=== PATIENT | female | born 1930 | race Hispanic/Latino ===

== ENCOUNTER 2019-12-08 19:20 | Emergency (ER) | payer MEDICARE ==
[2019-12-08] MEDS ORDERED: TETANUS/DIPHTHERIA TOXOID [ADULT] 0.5 ML VIAL IM ONE (20:12)
[2019-12-08] MEDS ORDERED: ACETAMINOPHEN-CODEINE 300/30MG TAB ONE (20:12)
[2019-12-08] MEDS ORDERED: ONDANSETRON ODT 4 MG TAB ONE (20:12)
== END 2019-12-08 22:21 | disposition home or self-care (01) ==
LOC: EDH 19:20
DX: S39.012A Strain of muscle, fascia and tendon of lower back, initial encounter (principal); S00.81XA Abrasion of other part of head, initial encounter; S00.83XA Contusion of other part of head, initial encounter; E78.00 Pure hypercholesterolemia, unspecified; I10 Essential (primary) hypertension; W18.39XA Other fall on same level, initial encounter; Y93.01 Activity, walking, marching and hiking; Y92.89 Other specified places as the place of occurrence of the external cause; Y99.8 Other external cause status
CPT/HCPCS: 70450; 72125; 90471; 90714; 93005

== ENCOUNTER → 2020-07-06 | Outpatient (CLI) | payer MEDICARE ==
[~2020-07-06] VITALS: Ht 162.6 cm; Wt 59.0 kg
[~2020-07-06] MED LIST: ACET-2247 PO; ATEN25TA PO; BIMA12.5OS OU; CARB15DR OU; CEFAZOLIN SODIUM 1 GM VIAL IVP ONE; CEFAZOLIN SODIUM 1 GM VIAL ONE; FURO20TA4 PO; LACTATED RINGERS 1000ML 0 ML IV ONE; MEMA5TAB42 PO; RISP1TAB98 PO; SIMV-43 PO
[2020-07-06 11:00] VITALS: BP 128/61
[2020-07-06 11:23] LABS: BASOPHILS % (AUTO) 1.4 % (0.0-5.0); EOSINOPHILS % (AUTO) 5.1 % (0.0-8.0); HEMATOCRIT 35.5 % (36-48); LYMPHOCYTES % (AUTO) 30.7 % (21.0-51.0); MEAN CORPUSCULAR HEMOGLOBIN 30.9 pg (27.0-33.0); MEAN CORPUSCULAR HGB CONC 31.8 g/dL (32.0-36.0); NEUTROPHILS % (AUTO) 50.3 % (40.0-77.0); PLATELET COUNT (AUTO) 110 K/uL (130-400); RED BLOOD CELL COUNT(AUTO) 3.66 MIL/uL (4.00-5.50); RED CELL DISTRIBUTION WIDTH 13.9 % (11.0-15.5); WHITE BLOOD COUNT (AUTO) 4.3 K/uL (4.8-10.8)
[2020-07-06 11:35] LABS: CREATININE 0.7 mg/dL (0.5-1.5); POTASSIUM 3.9 mmol/L (3.5-5.1)
== END ==
LOC: EDSTATUS 10:00 → DAH 10:00
PROVIDERS: ATTEND Orthopaedic Surgery
DX: S52.532A Colles' fracture of left radius, initial encounter for closed fracture (principal); E78.00 Pure hypercholesterolemia, unspecified; I10 Essential (primary) hypertension; Z96.653 Presence of artificial knee joint, bilateral; Z79.899 Other long term (current) drug therapy; W19.XXXA Unspecified fall, initial encounter; Y93.89 Activity, other specified; Y92.009 Unspecified place in unspecified non-institutional (private) residence as the place of occurrence of the external cause; Z20.828 Contact with and (suspected) exposure to other viral communicable diseases; Z53.8 Procedure and treatment not carried out for other reasons
CPT/HCPCS: 36415; 80048; 85025; 87426; C9803; U0003; 93005; J0690; J7120

== ENCOUNTER 2020-10-12 16:07 | Emergency (ER) | payer MEDICARE ==
[~2020-10-12] VITALS: Ht 160 cm; Wt 58.5 kg
[~2020-10-12 16:07] MED LIST changes: -CEFAZOLIN SODIUM 1 GM VIAL IVP ONE; -CEFAZOLIN SODIUM 1 GM VIAL ONE; -LACTATED RINGERS 1000ML 0 ML IV ONE
[2020-10-12 16:10] VITALS: BP 106/44
[2020-10-12] MEDS ORDERED: ZOSYN 3.375GM+NS 50ML 50 ML IV ONE (16:15)
[2020-10-12] MEDS ORDERED: ACETAMINOPHEN 500 MG TABLET PO ONE (16:15)
[2020-10-12] MEDS ORDERED: LACTATED RINGERS 1000ML 1,365 ML IV ONE (16:15)
[2020-10-12 16:41] LABS: APPEARANCE,URINE Clear (CLEAR); BILIRUBIN,URINE Negative (NEGATIVE); COLOR,URINE Yellow (YELLOW); GLUCOSE, URINE (UA) Negative (NEGATIVE); KETONES,URINE Negative (NEGATIVE); LEUKOCYTE ESTERASE ,URINE Trace (NEGATIVE); NITRATE,URINE Negative (NEGATIVE); OCCULT BLOOD,URINE Negative (NEGATIVE); PROTEIN,URINE Negative (NEGATIVE)
[2020-10-12 16:49] LABS: BASOPHILS % (AUTO) 1.4 % (0.0-5.0); EOSINOPHILS % (AUTO) 3.6 % (0.0-8.0); HEMATOCRIT 35.3 % (36-48); LYMPHOCYTES % (AUTO) 30.8 % (21.0-51.0); MEAN CORPUSCULAR HEMOGLOBIN 31.7 pg (27.0-33.0); MEAN CORPUSCULAR HGB CONC 32.6 g/dL (32.0-36.0); MEAN CORPUSCULAR VOLUME 97.2 fL (79-99); MONOCYTES % (AUTO) 10.8 % (3.0-13.0); NEUTROPHILS % (AUTO) 53.2 % (40.0-77.0); PLATELET COUNT (AUTO) 143 K/uL (130-400); RED BLOOD CELL COUNT(AUTO) 3.63 MIL/uL (4.00-5.50); RED CELL DISTRIBUTION WIDTH 14.4 % (11.0-15.5); WHITE BLOOD COUNT (AUTO) 4.2 K/uL (4.8-10.8)
[2020-10-12 16:51] LABS: BACTERIA,URINE Rare /HPF (None Seen); RBC,URINE None Seen /HPF (0-1); WBC,URINE 0-1 /HPF (0-1)
[2020-10-12 17:00] LABS: CREATININE 0.7 mg/dL (0.5-1.5); POTASSIUM 3.4 mmol/L (3.5-5.1)
[2020-10-12 17:02] LABS: INR 1.11 (0.85-1.15)
[2020-10-12 17:05] LABS: ALBUMIN 3.1 g/dL (3.5-5.0); BILIRUBIN,TOTAL 0.8 mg/dL (0.2-1.0); TOTAL PROTEIN, SERUM 7.1 g/dL (6.0-8.3)
[2020-10-12] MEDS ORDERED: CEPH500B PO (19:56)
[2020-10-12] MEDS ORDERED: CEPHALEXIN 500 MG CAPSULE PO SCH (20:00)
[2020-10-12] MEDS ORDERED: CEPHALEXIN 500 MG CAPSULE ONE (20:01)
[2020-10-12 20:07] VITALS: BP 98/51
== END 2020-10-12 20:40 | disposition home or self-care (01) ==
LOC: EDH 16:07
DX: N39.0 Urinary tract infection, site not specified (principal); G30.9 Alzheimer's disease, unspecified; F02.80 Dementia in other diseases classified elsewhere, unspecified severity, without behavioral disturbance, psychotic disturbance, mood disturbance, and anxiety; E78.00 Pure hypercholesterolemia, unspecified; I10 Essential (primary) hypertension; F41.9 Anxiety disorder, unspecified; Z79.899 Other long term (current) drug therapy
CPT/HCPCS: 36415; 70450; 71045; 72125; 80053; 81001; 83605; 85025; 85610; 87040; 87088; 93005

== ENCOUNTER 2021-05-07 14:48 | Emergency (ER) | payer MEDICARE ==
[~2021-05-07] VITALS: Ht 149.9 cm; Wt 54.4 kg
[~2021-05-07 14:48] MED LIST changes: +CEPH500B PO
[2021-05-07 16:12] VITALS: BP 139/52
[2021-05-07] MEDS ORDERED: ACET-66 PO (16:52)
== END 2021-05-07 17:29 | disposition home or self-care (01) ==
LOC: EDH 14:48
DX: M54.2 Cervicalgia (principal); R51.9 Headache, unspecified; I11.9 Hypertensive heart disease without heart failure; F41.9 Anxiety disorder, unspecified; E78.00 Pure hypercholesterolemia, unspecified; Z79.899 Other long term (current) drug therapy; W18.39XA Other fall on same level, initial encounter; Y93.89 Activity, other specified; Y92.89 Other specified places as the place of occurrence of the external cause; Y99.8 Other external cause status
CPT/HCPCS: 70450; 72125; 73030; 93005